=== PATIENT | female | born 1965 | race Caucasian/White ===

== ENCOUNTER 2019-07-21 05:58 | Emergency (ER) | payer BC ==
[2019-07-21] MEDS ORDERED: KETOROLAC 30 MG/ML VIAL IM ONE (06:03)
--- NOTE | 2019-07-21 06:07 | Emergency Department Record ---
History of Present Illness - General Chief Complaint: Fall Injury Stated Complaint: FALL Time Seen by Provider: 07/21/19 06:03 Source: Patient Mode of Arrival: Ambulatory Limitations: No limitations - History of Present Illness Initial Comments: 54 yo female presents after a fall. She missed the last step. She landed on her right arm. She presents with shoulder pain. She denies and head injury. No neck pain. No chest, back or abdominal pain. She denies and wrist or elbow pain on the right side. No history of prior shoulder disease. MD Complaint: Fall -: Minutes(s) (30) Fall From: Down stairs (#) (1) When Fall Occurred: Just prior to arrival Fall Witnessed: No Place Fall Occurred: Home Loss of Consciousness: None Prolonged Down Time?: No Symptoms Prior to Fall: None Location - Extremities: Right: Shoulder Severity: Moderate Quality: Aching Context: Tripped/slipped Associated Symptoms: Denies - [place]da Coma Scale Eye Response: (4) Open spontaneously Motor Response: (6) Obeys commands Verbal Response: (5) Oriented Callands Total: 15 - Related Data Allergies Allergy/AdvReac Type Severity Reaction Status Date / Time codeine Allergy Intermediate hallucinati Unverified 07/21/19 07:47 ons cyclobenzaprine HCl Allergy Intermediate amnesia Unverified 07/21/19 07:47 [From Flexeril] erythromycin base AdvReac Intermediate VOMITING Unverified 07/21/19 07:47 [Erythromycin Base] Review of Systems Constitutional: Denies: Chills, Fever, Malaise, Weakness Eyes: Denies: Eye discharge ENT: Denies: Congestion, Throat pain Respiratory: Denies: Cough Cardiovascular: Denies: Chest pain, Palpitations, Syncope Endocrine: Denies: Fatigue Gastrointestinal: Denies: Abdominal pain, Diarrhea, Nausea, Vomiting Genitourinary: Denies: Dysuria, Urgency Musculoskeletal: Reports: As per HPI, Arthralgia. Denies: Back pain, Neck pain Skin: Denies: Bruising, Change in color, Rash Neurological: Denies: Headache, Numbness, Weakness Psychiatric: Denies: Anxiety Hematological/Lymphatic: Denies: Easy bleeding, Easy bruising Past Medical History - SOCIAL HISTORY Smoking Status: Never smoker - RESPIRATORY Hx Respiratory Disorders: No - CARDIOVASCULAR Hx Cardio Disorders: No - NEURO Hx Neuro Disorders: No - GI Hx GI Disorders: No - Hx Genitourinary Disorders: No - ENDOCRINE Hx Endocrine Disorders: No - MUSCULOSKELETAL Hx Musculoskeletal Disorders: No - PSYCH Hx Psych Problems: No - HEMATOLOGY/ONCOLOGY Hx Hematology/Oncology Disorders: No Family Medical History Hx Diabetes: Mother, Brother/Sister, Grandparents Physical Exam - General General Appearance: Alert, Oriented x3, Cooperative, No acute distress Limitations: No limitations - Head Head exam: Atraumatic, Normocephalic, Normal inspection Head exam detail: negative: Abrasion, Contusion, Laceration - Eye Eye exam: Normal appearance. negative: Conjunctival injection, Periorbital swelling - ENT ENT exam: Normal exam Ear exam: Normal external inspection Nasal Exam: Normal inspection Mouth exam: Normal external inspection - Neck Neck exam: Normal inspection, Full ROM. negative: Tenderness - Respiratory Respiratory exam: Normal lung sounds bilaterally. negative: Accessory muscle use, Chest wall tenderness, Decreased breath sounds, Rhonchi, Stridor, Wheezes - Cardiovascular Cardiovascular Exam: Regular rate, Normal rhythm, Normal heart sounds Peripheral Pulses: 2+: Radial (R) - GI/Abdominal GI/Abdominal exam: Soft. negative: Tenderness - Rectal Rectal exam: Deferred - exam: Deferred - Extremities Extremities exam: Normal capillary refill, Tenderness Image of Full Body: 1 - tender anterior shoulder, clavicle is non tender, no elbow tenderness to palpation, elbow has full ROM, wrist non tender with full ROM. Limited ROM of the shoulder due to pain - Back Back exam: Denies: CVA tenderness (R), CVA tenderness (L), Muscle spasm, Paraspinal tenderness, Tenderness, Vertebral tenderness - Neurological Neurological exam: Alert, Oriented X3 - Psychiatric Psychiatric exam: Normal affect, Normal mood - Skin Skin exam: Dry, Intact, Normal color, Warm Course - Reevaluation(s) Reevaluation #1: 07/21/19 06:35 The XR was reviewed There is widening of the AC joint to suggest AC separation No acute displaced fracture or dislocation Disposition Disposition: Discharge Clinical Impression: AC separation Qualifiers: Encounter type: initial encounter Laterality: right Qualified Code(s): S43.101A - Unspecified dislocation of right acromioclavicular joint, initial encounter Disposition: Home, Self-Care Condition: (1) Good Instructions: Shoulder Separation Exercises (GEN), Acromioclavicular Separation (ED) Additional Instructions: Ice to the sore area 3-4 times daily Use the sling for support and comfort Call your doctor for a recheck No lifting until cleared by your doctor Forms: Patient Portal Access Quality - Quality Measures Quality Measures: N/A - Blood Pressure Screening Does Patient Have Any of the Following: No Blood Pressure Classification: Hypertensive Reading Systolic Measurement: 129 Diastolic Measurement: 90 Screening for High Blood Pressure: < Pre-Hypertensive BP, F/U Documented > [[id number]] Pre-Hypertensive Follow-up Interventions: Referral to alternative/primary care provider.
--- NOTE | 2019-07-21 06:52 | RADIOLOGY REPORT ---
EXAMINATION: Right Shoulder, Complete Minimum Two Views EXAM DATE: 07/21/2019 6:46 AM TECHNIQUE: AP, Grashey, and axillary INDICATION: shoulder pain after fall COMPARISON: None ENCOUNTER: Initial FINDINGS: Normal bony architecture. No acute fracture. 11 mm AC separation. AC arthrosis. IMPRESSION: 1. No acute fracture 2. AC arthrosis with 11 mm separation. Follow-up MRI as clinically directed Dictated by: Javier Montes MD on 07/21/2019 6:47 AM. .
== END 2019-07-21 07:12 | disposition home or self-care (01) ==
LOC: ER 05:58
DX: S43.101A Unspecified dislocation of right acromioclavicular joint, initial encounter (principal); W10.9XXA Fall (on) (from) unspecified stairs and steps, initial encounter; Y92.009 Unspecified place in unspecified non-institutional (private) residence as the place of occurrence of the external cause
CPT/HCPCS: 99284 ×2; 96372; 73030; J1885